=== PATIENT | female | born 1965 | race Hispanic/Latino ===

== ENCOUNTER 2016-09-17 10:53 | Emergency (ER) | payer BC ==
[2016-09-17 11:01] VITALS: BP 158/89; PULSE 77; RESP 18; TEMP 98.1; O2SAT 97
--- NOTE | 2016-09-17 12:37 | C.PDOC ---
History Of Present Illness 50 year old female presents to the ED with complaints of right hand pain and subjective swelling exacerbated by repetitive movements. 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 She denies any injury, weakness, or numbness. Time Seen by Provider: 09/17/16 11:31 Chief Complaint (Nursing): Upper Extremity Problem/Injury History Per: Patient History/Exam Limitations: no limitations Onset/Duration Of Symptoms: Days Current Symptoms Are (Timing): Still Present Quality: "Pain" Exacerbating Factor(s): Movement Recent travel outside of the [place]: No Past Medical History Reviewed: Historical Data, Nursing Documentation, Vital Signs Vital Signs: Last Vital Signs Temp 98.1 F 09/17/16 10:58 Pulse 77 09/17/16 10:58 Resp 18 09/17/16 10:58 BP 158/89 H 09/17/16 10:58 Pulse Ox 97 09/17/16 14:25 - Medical History PMH: Hypercholesterolemia - [facility] Procedures APPLICATION OF SPLINT (12/19/12) Family History: States: Unknown Family Hx - Social History Hx Tobacco Use: Yes Hx Alcohol Use: No Hx Substance Use: No - Immunization History Hx Tetanus Toxoid Vaccination: No Hx Influenza Vaccination: No Hx Pneumococcal Vaccination: No Review Of Systems Constitutional: Negative for: Fever Cardiovascular: Negative for: Chest Pain Respiratory: Negative for: Shortness of Breath Musculoskeletal: Positive for: Hand Pain (right hand pain ) Neurological: Negative for: Weakness, Numbness Physical Exam - Physical Exam Appears: Non-toxic, No Acute Distress Skin: Warm, Dry Head: Atraumatic Oral Mucosa: Moist Neck: Supple Chest: Symmetrical, No Deformity Cardiovascular: Rhythm Regular Respiratory: Normal Breath Sounds, No Rhonchi, No Wheezing Extremity: Normal ROM, Tenderness (some tenderness to the right hand ), Capillary Refill (good capillary refill, less than two seconds ), No Deformity, No Swelling, Other (no erythema) Neurological/Psych: Oriented x3 ED Course And Treatment O2 Sat by Pulse Oximetry: 97 (room air ) - Other Rad Right Hand X-Ray X-Ray: Interpreted by Me, Viewed By Me Interpretation: No acute fractures or dislocations Progress Note: Splint applied for comfort and patient instructed to follow up with hand specialist. Orthopedic Procedure: Splint Type: Short, Volar Location: Right, Hand Consent obtained: Verbal Performed by: Mid-level Provider (Performed by Patient information technology security manager and checked by me) Diagnosis: Other (splint applied for comfort) Capillary refill: Normal Capillary Refill: Normal Patient tolerated procedure: Well Disposition - Disposition Referrals: Marta Hopkins MD [Staff Provider] - Disposition: HOME/ ROUTINE Disposition Time: 12:37 Condition: STABLE Additional Instructions: Follow up with PMD and hand specialist within 1-2 days. Return to Ed if feel worse. Prescriptions: Ibuprofen [Motrin Tab] 600 mg PO Q8 #30 tab traMADol [Ultram] 50 mg PO Q6 #30 tab Instructions: Hand Sprain (ED) - Clinical Impression Clinical Impression: Hand pain - Scribe Statement The provider has reviewed the documentation as recorded by the Scribe Amber Garcia All medical record entries made by the Scribe were at my direction and personally dictated by me. I have reviewed the chart and agree that the record accurately reflects my personal performance of the history, physical exam, medical decision making, and the department course for this patient. I have also personally directed, reviewed, and agree with the discharge instructions and disposition.
--- NOTE | 2016-09-17 15:27 | RAD ---
Right hand three views History: Pain and swelling. Comparison: None available. Findings: No evidence of acute displaced fracture or dislocation. Small subchondral cyst at the 3rd metacarpal head. Narrowing of the 2nd through 4th DIP joint spaces. Prominent degenerative changes noted at the 1st IP joint space with osteophytosis. Impression: Degenerative changes. If pain persists, consider MRI.
== END 2016-09-17 13:00 | disposition home or self-care (01) ==
LOC: C.ER 10:53
DX: M79.641 Pain in right hand (principal)

== ENCOUNTER 2016-09-18 15:29 | Emergency (ER) | payer BC ==
[2016-09-18 15:35] VITALS: BP 156/92; PULSE 80; RESP 16; TEMP 97.7; O2SAT 98
--- NOTE | 2016-09-18 16:01 | C.PDOC ---
History Of Present Illness 50 y/o female seen in ED yesterday for right hand pain, placed in short volar splint for comfort, presents today c/o splint feeling tight. pt has not been elevating hand. denies numbness and tingling. Time Seen by Provider: 09/18/16 15:43 Chief Complaint (Nursing): Upper Extremity Problem/Injury History Per: Patient History/Exam Limitations: no limitations Onset/Duration Of Symptoms: Days (1) Current Symptoms Are (Timing): Worse Quality: Tightness Severity: Moderate Exacerbating Factor(s): Movement Past Medical History Reviewed: Historical Data, Nursing Documentation, Vital Signs Vital Signs: Last Vital Signs Temp 97.7 F 09/18/16 15:32 Pulse 80 09/18/16 15:32 Resp 16 09/18/16 15:32 BP 156/92 H 09/18/16 15:32 Pulse Ox 98 09/18/16 15:32 - Medical History PMH: Hypercholesterolemia - [facility] Procedures APPLICATION OF SPLINT (12/19/12) Family History: States: Unknown Family Hx - Social History Hx Tobacco Use: Yes Hx Alcohol Use: No Hx Substance Use: No - Immunization History Hx Tetanus Toxoid Vaccination: No Hx Influenza Vaccination: No Hx Pneumococcal Vaccination: No Review Of Systems Constitutional: Negative for: Fever, Chills Musculoskeletal: Positive for: Hand Pain (right) Skin: Negative for: Rash Neurological: Negative for: Weakness, Numbness Physical Exam - Physical Exam Appears: Non-toxic, No Acute Distress Skin: Warm, Dry Extremity: Other (right hand in splint; normal cap refill; pt reports it feels tight; mehdi bandage removed and applied more loosely. exam when bandage off- +2 radial pulse, mild hand tendnerness with motion. bandage applied more loosely. and pt given sling. ) ED Course And Treatment O2 Sat by Pulse Oximetry: 98 Medical Decision Making Medical Decision Making: mehdi bandage on splint re-adjusted and pt given sling. Disposition Counseled Patient/Family Regarding: Diagnosis, Need For Followup - Disposition Disposition: HOME/ ROUTINE Disposition Time: 16:03 Condition: IMPROVED Additional Instructions: Keep arm elevated in sling when walking around. elevate arm on pillow when lying down. Follow up with hand specialist or orthopedist of your choice. Instructions: Splint Care (ED) Forms: Gen Discharge Inst Danish - Clinical Impression Clinical Impression: Hand pain, right
== END 2016-09-18 16:19 | disposition home or self-care (01) ==
LOC: C.ER 15:29
DX: M79.641 Pain in right hand (principal)

== ENCOUNTER 2017-03-13 17:54 | Emergency (ER) | payer BC ==
--- NOTE | 2017-03-13 19:45 | C.PDOC ---
History Of Present Illness 51 years old female presents to ED with complaints of right hand soreness for the past 2 days. Patient denies any physical injuries to the hand, swelling, or wrist pain. 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 Time Seen by Provider: 03/13/17 19:25 Chief Complaint (Nursing): Finger,Hand,&Wrist History Per: Patient History/Exam Limitations: no limitations Onset/Duration Of Symptoms: Days (2) Current Symptoms Are (Timing): Still Present Quality: Other (Sore) Severity: Mild Pain Scale Rating Of: 3 Exacerbating Factor(s): Nothing Recent travel outside of the [place]: No Past Medical History Reviewed: Historical Data, Nursing Documentation, Vital Signs Vital Signs: Last Vital Signs Temp 97.8 F 03/13/17 19:48 Pulse 76 03/13/17 19:48 Resp 20 03/13/17 19:48 BP 146/94 H 03/13/17 19:48 Pulse Ox 100 03/13/17 19:53 - Medical History PMH: Hypercholesterolemia - [facility] Procedures APPLICATION OF SPLINT (12/19/12) Family History: States: No Known Family Hx - Social History Hx Tobacco Use: Yes Hx Alcohol Use: No Hx Substance Use: No - Immunization History Hx Tetanus Toxoid Vaccination: No Hx Influenza Vaccination: No Hx Pneumococcal Vaccination: No Review Of Systems Musculoskeletal: Positive for: Other (Right hand soreness) Skin: Negative for: Rash, Lesions, Bruising Neurological: Negative for: Weakness, Numbness Physical Exam - Physical Exam Appears: Non-toxic, Other (Awake and alert) Skin: Normal Color, Warm, Dry Eye(s): bilateral: Normal Inspection Extremity: Normal ROM, Tenderness (minimal to dorsal right hand near 1st MCP and web space b/w 1-2 fingers), Capillary Refill (< 2sec in right hand), No Deformity, No Swelling, Other (left hand - missing with deformities) Extremity: Bilateral: Normal ROM Pulses: Right Radial: Normal Neurological/Psych: Oriented x3, Normal Speech, Normal Cognition ED Course And Treatment O2 Sat by Pulse Oximetry: 100 (Room air) Pulse Ox Interpretation: Normal Progress Note: Advised to take NSAIDS and to avoid extremeluy strenuous activities involving right hand as much as possible Reassessment Condition: Improved Disposition - Disposition Disposition: HOME/ ROUTINE Disposition Time: 07:40 Condition: STABLE Additional Instructions: Take advil or aleve for pain Avoid doing very strenuous activities with hand as possible Follwo up with your PCP Return to ER if worse Instructions: Hand Sprain (ED) Forms: [facility] (Luxembourger) - Clinical Impression Clinical Impression: Hand pain, right - 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 - Scribe Statement The provider has reviewed the documentation as recorded by the Angelaiblindy Rocha All medical record entries made by the Fabian were at my direction and personally dictated by me. I have reviewed the chart and agree that the record accurately reflects my personal performance of the history, physical exam, medical decision making, and the department course for this patient. I have also personally directed, reviewed, and agree with the discharge instructions and disposition.
--- NOTE | 2017-03-13 19:46 | C.PDOC ---
Time Seen by Provider: 03/13/17 19:25 Chief Complaint (Nursing): Finger,Hand,&Wrist Past Medical History Vital Signs: Last Vital Signs Temp 99.5 F 03/13/17 18:06 Pulse 73 03/13/17 18:06 Resp 18 03/13/17 18:06 BP 171/100 H 03/13/17 18:06 Pulse Ox 100 03/13/17 18:06 - Medical History PMH: Hypercholesterolemia - [facility] Procedures APPLICATION OF SPLINT (12/19/12) Family History: States: Unknown Family Hx - Social History Hx Tobacco Use: Yes Hx Alcohol Use: No Hx Substance Use: No - Immunization History Hx Tetanus Toxoid Vaccination: No Hx Influenza Vaccination: No Hx Pneumococcal Vaccination: No ED Course And Treatment O2 Sat by Pulse Oximetry: 100 Disposition Counseled Patient/Family Regarding: Diagnosis, Need For Followup - Disposition Disposition: HOME/ ROUTINE Disposition Time: 19:45 Condition: STABLE Additional Instructions: Take advil or aleve for pain Avoid doing very strenuous activities with hand as possible Follwo up with your PCP Return to ER if worse Instructions: Hand Sprain (ED) - Clinical Impression Clinical Impression: Hand pain, right
[2017-03-13 19:49] VITALS: BP 146/94; PULSE 76; RESP 20; TEMP 97.8
[2017-03-13 19:50] VITALS: O2SAT 100
== END 2017-03-13 20:08 | disposition home or self-care (01) ==
LOC: C.ER 17:54
DX: M79.641 Pain in right hand (principal); E78.00 Pure hypercholesterolemia, unspecified; Z87.891 Personal history of nicotine dependence

== ENCOUNTER 2017-05-01 14:14 | Emergency (ER) | payer BC ==
[2017-05-01 14:46] VITALS: TEMP 98; O2SAT 99
--- NOTE | 2017-05-01 17:58 | C.PDOC ---
History Of Present Illness 51 y/o female presents to ED with complaints of atraumatic right wrist pain for 3 weeks. Patient states pain is worse when moving right thumb and reports she saw PMD 2 weeks ago and was instructed to wear brace. 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 Patient is right hand dominant and denies change in sensation, injury or any other complaints at this time. Time Seen by Provider: 05/01/17 17:23 Chief Complaint (Nursing): Upper Extremity Problem/Injury History Per: Patient History/Exam Limitations: no limitations Onset/Duration Of Symptoms: Days Current Symptoms Are (Timing): Still Present Quality: "Pain" Past Medical History Reviewed: Historical Data, Nursing Documentation, Vital Signs Vital Signs: Last Vital Signs Temp 98.0 F 05/01/17 14:44 Pulse 74 05/01/17 18:37 Resp 18 05/01/17 18:37 BP 155/92 H 05/01/17 18:37 Pulse Ox 99 05/01/17 18:37 - Medical History PMH: Hypercholesterolemia Surgical History: No Surg Hx - [facility] Procedures APPLICATION OF SPLINT (12/19/12) Family History: States: No Known Family Hx - Social History Hx Tobacco Use: Yes Hx Alcohol Use: No Hx Substance Use: No - Immunization History Hx Tetanus Toxoid Vaccination: No Hx Influenza Vaccination: No Hx Pneumococcal Vaccination: No Review Of Systems Except As Marked, All Systems Reviewed And Found Negative. Musculoskeletal: Positive for: Hand Pain Physical Exam - Physical Exam Appears: Non-toxic, No Acute Distress Skin: Warm, Dry, No Rash Head: Atraumatic, Normacephalic Oral Mucosa: Moist Neck: Normal ROM, Supple Extremity: Tenderness (to lateral aspect of right wrist worse with movement of right thumb), No Deformity, No Swelling, Other (No redness. No pain with movement of other digits. ) Extremity: Left: Other (hand amputation since ) Pulses: Right Radial: Normal Neurological/Psych: Oriented x3 ED Course And Treatment O2 Sat by Pulse Oximetry: 99 (RA) - Other Rad right wrist and thumb X-Ray: Interpreted by Me, Viewed By Me Interpretation: no fracture, no dislocation. Pending official reading by radiologist. Medical Decision Making Medical Decision Making: Assessment: Wrist pain Disposition Counseled Patient/Family Regarding: Studies Performed, Diagnosis, Need For Followup, Rx Given - Disposition Disposition: HOME/ ROUTINE Disposition Time: 18:31 Condition: STABLE Additional Instructions: follow up with your doctor in 2 days call to make an appointment take medications as prescribed return to ED if symptoms worsens or progress Prescriptions: Naproxen [Naprosyn] 500 mg PO BID PRN #16 tab PRN Reason: Pain, Moderate (4-7) Instructions: Joint Pain Forms: [facility] (Greek), General Discharge Instructions - Clinical Impression Clinical Impression: Hand pain, right - Scribe Statement The provider has reviewed the documentation as recorded by the Fabian Holguin All medical record entries made by the Fabian were at my direction and personally dictated by me. I have reviewed the chart and agree that the record accurately reflects my personal performance of the history, physical exam, medical decision making, and the department course for this patient. I have also personally directed, reviewed, and agree with the discharge instructions and disposition.
[2017-05-01 18:38] VITALS: BP 155/92; PULSE 74; RESP 18
--- NOTE | 2017-05-02 09:17 | RAD ---
PROCEDURE: Right Thumb radiographs. HISTORY: pain COMPARISON: None. TECHNIQUE: AP radiograph of the right hand, as well as spot oblique and lateral images of thumb were obtained. FINDINGS: RIGHT THUMB: No fracture or lytic lesion 1st interphalangeal joint space narrowing with prominent radial sided osteophytosis. JOINTS: Normal. SOFT TISSUES: Normal. OTHER FINDINGS: Abort IMPRESSION: 1st interphalangeal joint space narrowing with prominent radial sided osteophytosis /arthrosis. No fracture or lytic lesion
--- NOTE | 2017-05-02 09:20 | RAD ---
PROCEDURE: Right Wrist Radiographs. HISTORY: pain COMPARISON: Right hand x-ray 09/17/2016 noted FINDINGS: BONES: No fracture cystic erosive change dear sided lunate and radial side capitate ; findings similar JOINTS: Minimal radial carpal joint space narrowing SOFT TISSUES: Normal. OTHER FINDINGS: None. IMPRESSION: Carpal cystic/ and/or erosive changes lunate capitate -stable since 09/17/2016
== END 2017-05-01 18:38 | disposition home or self-care (01) ==
LOC: C.ER 14:14
DX: M79.641 Pain in right hand (principal)

== ENCOUNTER 2018-07-18 11:08 | Emergency (ER) | payer BC ==
[2018-07-18 11:14] VITALS: BP 158/102; PULSE 95; RESP 20; TEMP 99.1; O2SAT 96
--- NOTE | 2018-07-18 11:15 | C.PDOC ---
History Of Present Illness 52-year-old female, whose past medical history includes left shoulder rotator cuff injury diagnosed in 2007, presents to the ED for evaluation of left shoulder pain. Patient states her current symptoms feel similar to her rotator cuff issues in the past. She describes a throbbing sensation that is worse with movement of her shoulder. Patient states she woke up with the pain and denies know injury/trauma to the area, chest pain, shortness of breath, extremity numbness/weakness. Time Seen by Provider: 07/18/18 11:15 Chief Complaint (Nursing): Upper Extremity Problem/Injury History Per: Patient History/Exam Limitations: no limitations Onset/Duration Of Symptoms: Days Current Symptoms Are (Timing): Still Present Quality: "Pain" Exacerbating Factor(s): Movement Additional History Per: Patient Past Medical History Reviewed: Historical Data, Nursing Documentation, Vital Signs Vital Signs: Last Vital Signs Temp 99.1 F 07/18/18 11:11 Pulse 95 H 07/18/18 11:11 Resp 20 07/18/18 11:11 BP 158/102 H 07/18/18 11:11 Pulse Ox 96 07/18/18 11:11 Primary Care Provider: Panda Tom - Medical History PMH: Hypercholesterolemia Surgical History: No Surg Hx - [facility] Procedures APPLICATION OF SPLINT (12/19/12) Family History: States: Unknown Family Hx - Social History Hx Tobacco Use: Yes Hx Alcohol Use: No Hx Substance Use: No - Immunization History Hx Tetanus Toxoid Vaccination: No Hx Influenza Vaccination: No Hx Pneumococcal Vaccination: No Review Of Systems Cardiovascular: Negative for: Chest Pain Respiratory: Negative for: Shortness of Breath Musculoskeletal: Positive for: Shoulder Pain (left ) Neurological: Negative for: Weakness, Numbness Physical Exam - Physical Exam Appears: Well, Non-toxic, No Acute Distress Skin: Normal Color, Warm, Dry Head: Atraumatic, Normacephalic Eye(s): bilateral: Normal Inspection, PERRL, EOMI Ear(s): Bilateral: Normal Nose: Normal Oral Mucosa: Moist Tongue: Normal Appearing Lips: Normal Appearing Throat: Normal, No Erythema, No Exudate, No Drooling, No Mass Neck: Normal ROM, No Midline Cervical Tenderness, Supple, Other (no menigneal signs) Lymphatic: No Adenopathy Chest: Symmetrical, No Deformity, No Tenderness Cardiovascular: Rhythm Regular, No Murmur, No JVD Respiratory: Normal Breath Sounds, No Rales, No Rhonchi, No Wheezing Gastrointestinal/Abdominal: Soft, No Tenderness, No Guarding, No Rebound Back: Normal Inspection, No CVA Tenderness, No Vertebral Tenderness Extremity: Normal ROM, Tenderness (pinpoint tenderness to left AC joint ), Capillary Refill (less than 2 seconds ), No Deformity, No Swelling Pulses: Left Radial: Normal, Right Radial: Normal Neurological/Psych: Oriented x3, Normal Speech, Normal Cognition, No Cerebellar Signs, Normal Motor, Normal Sensation ED Course And Treatment O2 Sat by Pulse Oximetry: 96 (on RA) Pulse Ox Interpretation: Normal - Other Rad left shoulder XR X-Ray: Viewed By Me, Read By Radiologist Interpretation: PROCEDURE: Radiographs of the Left Shoulder, three views. HISTORY: L shoulder pain, chronic. COMPARISON: None available. FINDINGS: BONES: No acute displaced fracture. The distal clavicle and underlying ribs appear intact. JOINTS: No acute dislocation. Mild glenohumeral joint space narrowing. Probable calcific tendinitis. SOFT TISSUES: Soft tissues appear unremarkable. No evidence of radiopaque foreign body. Atherosclerotic calcifications of the aortic knob. Partially imaged cardiomegaly. IMPRESSION: Evidence of calcific tendinitis. Mild glenohumeral joint space narrowing. Medical Decision Making Medical Decision Making: Impression: 52 year old female with left shoulder pain. Reproducible to palpation. No chest pain or shortness of breath. No fall or trauma. No back pain. N/V intact to b/l UE. Differential diagnoses: * musculoskeletal pain * reassess and disposition Plan: * Left shoulder XR * Tylenol PO * Flexeril PO * reassess and disposition Progress: Left shoulder XR ordered. Tylenol PO and Flexeril PO given. 1339 pt notes pain improved, no cp or sob xray unremarkable remains n/v intact, clear for d/c home with return indications and f/u pt notes she is ok with tylenol at home. Disposition - Disposition Referrals: Zita Valle MD [Staff Provider] - Panda Tom DO [Doctor Osteopathy] - [facility] [Outside] [facility] [Outside] [facility] [Outside] Disposition: HOME/ ROUTINE Disposition Time: 13:40 Condition: STABLE Additional Instructions: DIDIER SALAZAR, thank you for letting us take care of you today. Your provider was Pedro Castro and you were treated for LEFT SHOULDER PAIN. The emergency medical care you received today was directed at your acute symptoms. If you were prescribed any medication, please fill it and take as directed. It may take several days for your symptoms to resolve. Return to the Emergency Department if your symptoms worsen, do not improve, or if you have any other problems. Please contact your doctor or call one of the physicians/clinics you have been referred to that are listed on the Patient Visit Information form that is included in your discharge packet. Bring any paperwork you were given at discharge with you along with any medications you are taking to your follow up visit. Our treatment cannot replace ongoing medical care by a primary care provider outside of the emergency department. Thank you for allowing the [facility] team to be part of your care today. If you had an X-Ray or CT scan: A Radiologist will review the ED reading if any change in treatment is needed we will contact you. If you had a blood, urine, or wound culture: It will take several days for the results, if any change in treatment is needed we will contact you. If you had an STI test: It will take 48 hours for the results. Please call after 1 week if you have not heard back. 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 - Scribe Statement The provider has reviewed the documentation as recorded by the Scribe (Karli Shields) Provider Attestation: All medical record entries made by the Scribe were at my direction and personally dictated by me. I have reviewed the chart and agree that the record accurately reflects my personal performance of the history, physical exam, medical decision making, and the department course for this patient. I have also personally directed, reviewed, and agree with the discharge instructions and disposition.
--- NOTE | 2018-07-18 12:09 | RAD ---
PROCEDURE: Radiographs of the Left Shoulder, three views HISTORY: L shoulder pain, chronic COMPARISON: None available FINDINGS: BONES: No acute displaced fracture. The distal clavicle and underlying ribs appear intact. JOINTS: No acute dislocation. Mild glenohumeral joint space narrowing. Probable calcific tendinitis. SOFT TISSUES: Soft tissues appear unremarkable. No evidence of radiopaque foreign body. Atherosclerotic calcifications of the aortic knob. Partially imaged cardiomegaly. IMPRESSION: Evidence of calcific tendinitis. Mild glenohumeral joint space narrowing.
== END 2018-07-18 13:52 | disposition home or self-care (01) ==
LOC: C.ER 11:08
DX: S46.912A Strain of unspecified muscle, fascia and tendon at shoulder and upper arm level, left arm, initial encounter (principal); X58.XXXA Exposure to other specified factors, initial encounter; M75.32 Calcific tendinitis of left shoulder